=== PATIENT | female | born 1940 | race Caucasian/White ===

== ENCOUNTER 2021-03-19 07:20 | Outpatient (REF) | payer MEDICARE, SELFPAY ==
[2021-03-19 11:24] LABS: Glucose Urine UA NEG (NEG); Leukocyte Esterase Urine 1+ (NEG); Nitrite Urine NEG (NEG); Specific Gravity - Urine 1.025 (1.005-1.025); Urine Blood NEG (NEG); Urine Ketones NEG (NEG); Urine Protein NEG (NEG-TRACE)
[2021-03-19 11:28] LABS: Appearance Urine HAZY; Color Urine YELLOW
[2021-03-19 11:37] LABS: RBC Urine 0 /HPF (0); Squamous Epithelial Cell Urine 1+ /LPF
[2021-03-19 11:39] LABS: Hematocrit 40.6 % (37-47); Hemoglobin 13.6 g/dl (12.0-16.0); Mean Corpuscular HGB Conc 33.5 g/dl (31.0-35.0); Mean Corpuscular Hemoglobin 31.3 pg (27.0-33.0); Mean Corpuscular Volume 93.5 fL (80-98); Mean Platelet Volume 11.7 fL (9.4-12.3); Platelet Count 199 X10*3/uL (160-400); Red Blood Count 4.34 X10*6/uL (4.20-5.50); Red Cell Distribution Width 12.3 % (11.0-16.0)
[2021-03-19 11:48] LABS: Alanine Aminotransferase 9 U/L (0-31); Alkaline Phosphatase 58 U/L (39-117); Anion Gap 11 (12-20); Aspartate Amino Transferase 14 U/L (5-31); Bilirubin Total 0.7 mg/dL (0.0-1.0); Blood Urea Nitrogen 14 mg/dL (9-16); Calcium 9.1 mg/dL (8.4-10.2); Carbon Dioxide 25 mmol/L (22-29); Chloride 109 mmol/L (96-108); Cholesterol 221 mg/dL; Estimated Glomerular Filt Rate > 60; Glucose Fasting 99 mg/dL (60-99); HDL Cholesterol 39 mg/dL; LDL Cholesterol Calculated 154 mg/dl; Potassium 4.1 mmol/L (3.3-5.1); Sodium 141 mmol/L (135-145); Total Protein 7.3 g/dL (6.5-8.0); Triglycerides 140 mg/dL
[2021-03-19 12:10] LABS: TSH reflex Free T4 1.19 uIU/mL (0.32-4.0)
== END 2021-03-19 07:21 | disposition home or self-care (01) ==
LOC: HO.HMGCLDS 07:20
PROVIDERS: PCP Internal Medicine; Visit Provider Internal Medicine
DX: Z00.00 Encounter for general adult medical examination without abnormal findings (principal); E78.5 Hyperlipidemia, unspecified; I10 Essential (primary) hypertension
CPT/HCPCS: 36415; 80053; 80061; 81001; 84443; 85027

== ENCOUNTER 2021-09-09 20:16 | Emergency (ER) | payer MEDICARE, SELFPAY ==
--- NOTE | ~2021-09-09 | CT_ITS ---
EXAMINATION: CT CHEST WITHOUT CONTRAST CLINICAL INFORMATION: Severe dysphagia. Rule out esophageal abnormality COMPARISON: None TECHNIQUE: Multidetector volumetric CT imaging of the chest was done. Axial MIP volume rendering provided. Sagittal and coronal reformatted images were obtained. Mild respiratory motion artifact limits evaluation for small nodules. This CT examination was performed using dose optimization techniques as appropriate, variously including the following: *Automated exposure control *Adjustment of mA and/or kV according to patient size (this includes techniques or standardized protocols for targeted exams where dose is matched to indication/reason for exam; i.e. extremities or head) *Use of iterative reconstruction technique DLP: 221 mGy-cm FINDINGS: LUNGS/PLEURA/AIRWAYS: Mild elevation of the right hemidiaphragm. Mild upper lobe predominant centrilobular and paraseptal emphysema is seen. A few scattered nodules are seen. A international account representative nodule anterolaterally in the right upper lobe measures 0.2 cm (image 78, series 5). Mild linear atelectasis/scarring is seen at the lung bases. There are no pleural effusions. The airways are patent. MEDIASTINUM: The visualized thyroid gland shows a nodule in the left lower pole measuring up to 2.1 cm (image 38, series 6). Mild atherosclerosis is seen in the coronary arteries. No pericardial effusion. Mild atherosclerosis is seen in the thoracic aorta without significant dilatation. No mediastinal or hilar lymphadenopathy. UPPER ABDOMEN: Small hiatal hernia. The remainder of the stomach is unremarkable. A small calcification is seen in the spleen. MUSCULOSKELETAL: Mild thoracic dextro scoliosis is seen with mild to moderate multilevel degenerative changes. No suspicious abnormality. SOFT TISSUES: Unremarkable. CT/CT chest wo con IMPRESSION: 1. Small hiatal hernia without other significant esophageal abnormality. Further evaluation with esophagram is recommended. 2. Mild centrilobular/paraseptal emphysema and chronic changes. A few scattered nodules measuring up to 0.2 cm are nonspecific. Following Fleischner Society guidelines, imaging follow-up is recommended as clinically indicated. 3. Left lower pole thyroid nodule measuring 2.1 cm amenable to further evaluation with dedicated thyroid ultrasound.
[2021-09-09 20:36] VITALS: BP 138/74; PULSE 84; O2SAT 95
[2021-09-09 20:44] VITALS: BP 143/71; PULSE 75; RESP 18; TEMP 36.5; O2SAT 100; BMI 29.8
--- NOTE | 2021-09-09 20:45 | ED_ITS ---
HPI - General Adult General Chief complaint: General Medical Stated complaint: [place] lightheadedness Time Seen by Provider: 09/09/21 20:45 Source: patient Mode of arrival: ambulatory Limitations: no limitations History of Present Illness HPI narrative: Patient history of hypertension hyperlipidemia been having difficulty in swallowing since 08/24 with not feeling good since then whenever she swallows feel that food is staying in the throat area and she has to vomit was at [facility] workup negative no endoscopy or CT scan was done patient states for last 2 weeks she has not eaten any food try to have some pudding and she throws up able to drink liquids Related Data Home Medications Medication Instructions Recorded Confirmed flu vacc 2019-(65yr ml IM 09/25/20 09/07/21 up)-MF59C(PF) 60 mcg(15 mcgx4)/0.5 mL IM syringe cetirizine 10 mg capsule (Zyrtec) 10 mg PO DAILY PRN 04/02/21 09/07/21 Previous Rx's Medication Instructions Recorded metoprolol succinate 50 mg 50 mg PO DAILY #90 tab 02/19/21 tablet,extended release 24 hr indomethacin 75 mg 75 mg PO DAILY #10 cap 09/07/21 capsule,extended release Allergies Allergy/AdvReac Type Severity Reaction Status Date / Time atorvastatin [Lipitor] Allergy Unknown leg cramps Verified 09/07/21 10:23 simvastatin Allergy Unknown leg cramps Verified 09/07/21 10:23 Review of Systems Review of Systems: Yes all other systems are reviewed and are negative PMFSH Past Medical History Medical History Annual physical exam Chronic allergic rhinitis Eczema Gout attack HTN (hypertension) Hyperlipidemia Overweight Surgical History History of partial hysterectomy Family History Family History Father CVD (cardiovascular disease) Myocardial infarction Mother Ovarian cancer Social History Social History Housing: House Alcohol intake: current Alcohol intake frequency: a few times a month Patient Tobacco Use Status: Never used Tobacco e-Cigarette/Vaping Use: Never Used Second Hand Smoke Exposure: No Advance Directives: No Current occupational status: retired Physical Exam Vital Signs: Vital Signs: Last Vital Signs Temp 97.7 F 09/09/21 20:44 Pulse 83 09/10/21 00:38 Resp 18 09/10/21 00:38 BP 149/74 H 09/10/21 00:38 Pulse Ox 94 09/10/21 00:38 BMI result Body Mass Index 29.8 Medical Decision Making MDM Narrative Medical decision making narrative: Patient with stable labs CT scan chest negative for any obstructive finding slight hiatal hernia when patient asked to eat swallow pudding she had a hard time but could ED hole cup when we asked for to drink water patient was able to drink water but complaining of water staying in the throat patient did not throw up in the ER, 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 Will give her Ativan and evaluate again 1:19 patient feeling much better after Ativan able to drink water feeling less dizzy now planning to discharge her home in the morning Lab Data Lab results reviewed: Yes I reviewed the patient's lab results. Result diagrams: 09/09/21 22:00 09/09/21 22:00 Labs: Lab Results 09/09/21 09/09/21 09/09/21 Range/Units 22:00 22:00 22:00 WBC 8.0 (4.8-10.8) X10*3/uL RBC 4.68 (4.20-5.50) X10*6/uL Hgb 14.8 (12.0-16.0) g/dl Hct 42.0 (37.0-47.0) % MCV 89.7 (80.0-98.0) fL MCH 31.6 (27.0-33.0) pg MCHC 35.2 H (31.0-35.0) g/dl RDW 11.9 (11.0-16.0) % Plt Count 218 (160-400) X10*3/uL MPV 11.1 (9.4-12.3) fL Immature Gran % (Auto) 0.2 (0.0-0.4) % Neut % (Auto) 72.6 (45-73) % Lymph % (Auto) 18.5 L (20-40) % [place] % (Auto) 6.8 (2-11) % Eos % (Auto) 1.2 (0-4) % Baso % (Auto) 0.7 (0-2) % Lymph # (Auto) 1.5 (1.2-4.9) X10*3/uL [place] # (Auto) 0.6 (0.1-1.2) X10*3/uL Eos # (Auto) 0.1 (0.0-0.4) X10*3/uL Baso # (Auto) 0.1 (0.0-0.2) X10*3/uL Abs Immat Gran (auto) 0.02 (0.00-0.03) X10*3/uL Absolute Neuts (auto) 5.8 (2.0-8.3) x10*3/uL Absolute Nucleated RBC 0.000 (0.0-0.012) X10*3/uL Nucleated RBC % (auto) 0.0 (0.0-0.2) /100WBC PT 13.9 H (9.9-13.0) SEC INR 1.2 H (0.9-1.1) Sodium 135 (135-145) mmol/L Potassium 3.5 (3.3-5.1) mmol/L Chloride 102 (96-108) mmol/L Carbon Dioxide 24 (22-29) mmol/L Anion Gap 13 (12-20) BUN 8 L (9-16) mg/dL Creatinine 0.67 (0.5-1.4) mg/dL Estim Creat Clear Calc 66.9 Estimated GFR > 60 Random Glucose 113 (60-115) mg/dL Calcium 9.5 (8.4-10.2) mg/dL Magnesium 2.2 (1.6-2.6) mg/dL Total Bilirubin 1.2 H (0.0-1.0) mg/dL AST 19 (5-31) U/L ALT 16 (0-31) U/L Alkaline Phosphatase 46 D (39-117) U/L Total Protein 7.7 (6.5-8.0) g/dL Albumin 4.1 (3.5-5.0) g/dL COVID-19 ([facility]) (Negative) COVID-19 Clin Com 09/09/21 Range/Units 22:00 WBC (4.8-10.8) X10*3/uL RBC (4.20-5.50) X10*6/uL Hgb (12.0-16.0) g/dl Hct (37.0-47.0) % MCV (80.0-98.0) fL MCH (27.0-33.0) pg MCHC (31.0-35.0) g/dl RDW (11.0-16.0) % Plt Count (160-400) X10*3/uL MPV (9.4-12.3) fL Immature Gran % (Auto) (0.0-0.4) % Neut % (Auto) (45-73) % Lymph % (Auto) (20-40) % [place] % (Auto) (2-11) % Eos % (Auto) (0-4) % Baso % (Auto) (0-2) % Lymph # (Auto) (1.2-4.9) X10*3/uL [place] # (Auto) (0.1-1.2) X10*3/uL Eos # (Auto) (0.0-0.4) X10*3/uL Baso # (Auto) (0.0-0.2) X10*3/uL Abs Immat Gran (auto) (0.00-0.03) X10*3/uL Absolute Neuts (auto) (2.0-8.3) x10*3/uL Absolute Nucleated RBC (0.0-0.012) X10*3/uL Nucleated RBC % (auto) (0.0-0.2) /100WBC PT (9.9-13.0) SEC INR (0.9-1.1) Sodium (135-145) mmol/L Potassium (3.3-5.1) mmol/L Chloride (96-108) mmol/L Carbon Dioxide (22-29) mmol/L Anion Gap (12-20) BUN (9-16) mg/dL Creatinine (0.5-1.4) mg/dL Estim Creat Clear Calc Estimated GFR Random Glucose (60-115) mg/dL Calcium (8.4-10.2) mg/dL Magnesium (1.6-2.6) mg/dL Total Bilirubin (0.0-1.0) mg/dL AST (5-31) U/L ALT (0-31) U/L Alkaline Phosphatase (39-117) U/L Total Protein (6.5-8.0) g/dL Albumin (3.5-5.0) g/dL COVID-19 ([facility]) Negative (Negative) COVID-19 Clin Com See Note Discharge Plan Discharge Clinical Impression: Globus hystericus Patient Disposition: Home, Self-Care Instructions: Dysphagia (ED) Additional Instructions: your dysphagia workup is negative for any obstruction clinically patient has psychogenic dysphagia/globus hystericus patient . follow up with car inspector Prescriptions: No Action metoprolol succinate 50 mg tablet extended release 24 hr 50 mg PO DAILY Qty: 90 RF: 3 Fluad Quad 2020-21(65y up)(PF) 60 mcg (15 mcg x 4)/0.5 mL syringe IM RF: 0 Zyrtec 10 mg capsule 10 mg PO DAILY PRNRF: 0 indomethacin 75 mg capsule, extended release 75 mg PO DAILY Qty: 10 RF: 0 Referrals: Mati Head MD [Physician] - 1 week
[2021-09-09] MEDS: Famotidine/PF 20 MG/2 ML VIAL IVPUSH (21:41)
[2021-09-09] MEDS: 0.9 % Sodium Chloride 1,000 ML 999 ML IV (21:41)
[2021-09-09] MEDS: ondansetron HCL 4 MG/2 ML VIAL IVPUSH (21:41)
[2021-09-09 22:00] VITALS: BP 159/86; PULSE 84; RESP 18; O2SAT 96
[2021-09-09 22:05] LABS: MANUAL DIFF FLAG NO
[2021-09-09 22:08] LABS: Basophils Absolute Auto 0.1 X10*3/uL (0.0-0.2); Basophils Percent Auto 0.7 % (0-2); Eosinophils Absolute Auto 0.1 X10*3/uL (0.0-0.4); Eosinophils Percent Auto 1.2 % (0-4); Hemoglobin 14.8 g/dl (12.0-16.0); Imm Gran Abs Auto 0.02 X10*3/uL (0.00-0.03); Imm Gran Pct Auto 0.2 % (0.0-0.4); Lymphocytes Absolute Auto 1.5 X10*3/uL (1.2-4.9); Lymphocytes Percent Auto 18.5 % (20-40); Mean Corpuscular HGB Conc 35.2 g/dl (31.0-35.0); Mean Corpuscular Hemoglobin 31.6 pg (27.0-33.0); Mean Corpuscular Volume 89.7 fL (80.0-98.0); Mean Platelet Volume 11.1 fL (9.4-12.3); Monocytes Absolute Auto 0.6 X10*3/uL (0.1-1.2); Monocytes Percent Auto 6.8 % (2-11); Neutrophils Absolute Auto 5.8 x10*3/uL (2.0-8.3); Neutrophils Percent Auto 72.6 % (45-73); Platelet Count 218 X10*3/uL (160-400); Red Blood Count 4.68 X10*6/uL (4.20-5.50); Red Cell Distribution Width 11.9 % (11.0-16.0)
[2021-09-09 22:16] LABS: INTERNATIONAL NORM RATIO 1.2 (0.9-1.1); Prothrombin Time 13.9 SEC (9.9-13.0)
[2021-09-09 22:26] LABS: Alanine Aminotransferase 16 U/L (0-31); Albumin Level 4.1 g/dL (3.5-5.0); Alkaline Phosphatase 46 U/L (39-117); Anion Gap 13 (12-20); Aspartate Amino Transferase 19 U/L (5-31); Bilirubin Total 1.2 mg/dL (0.0-1.0); Blood Urea Nitrogen 8 mg/dL (9-16); COVID-19 Test Negative (Negative); Calcium 9.5 mg/dL (8.4-10.2); Carbon Dioxide 24 mmol/L (22-29); Chloride 102 mmol/L (96-108); Creatinine Clr Calc Pharmacy 66.9; Estimated Glomerular Filt Rate > 60; Glucose Random 113 mg/dL (60-115); Magnesium 2.2 mg/dL (1.6-2.6); Potassium 3.5 mmol/L (3.3-5.1); Sodium 135 mmol/L (135-145); Total Protein 7.7 g/dL (6.5-8.0)
--- NOTE | 2021-09-09 22:50 | MHC.CM.ED ---
CM met with patient at request of Marcie COE over concerns about HCP. Pt would like to change her HCP because her son is a community health coordinator in [place] and cannot fufill her needs at this time. New HCP completed and signed per protocol Copies given and uploaded into [employer] and [facility] [employer]. HCP #1/grandson Giovanny Nolascoderick ([phone]) and #2 Guillermina Leonмарина (daughter in law) ([phone]). Medical work up continues.
--- NOTE | 2021-09-09 23:09 | PC.NURSE ---
pt has a red beefy raw rash with marcum discharge. foul smelling,
[2021-09-09 23:27] VITALS: BP 159/86; PULSE 85; RESP 20; O2SAT 97
--- NOTE | 2021-09-09 23:28 | PC.NURSE ---
pt was given a po challenger and a swallow eval was done before the challenge. pt was able to swallow the water with no difficulty but then stated the water felt stuck in her throat. dr lam made aware of this and pudding was tried with no difficutly. pt has difficutly with water but not the pudding. pt hob elevated and small bits of the pudding are being taken with rn at bedside.
[2021-09-10 00:38] VITALS: BP 149/74; PULSE 83; RESP 18; O2SAT 94
[2021-09-10] MEDS: LORazepam 2 MG/ML VIAL 0.5 MG IVPUSH (00:45)
--- NOTE | 2021-09-10 02:27 | PC.NURSE ---
pt very sleepy, unable to stay awake to give discharge instructions.
[2021-09-10 03:46] VITALS: BP 133/58; PULSE 75; RESP 16; O2SAT 96
[2021-09-10 04:49] VITALS: BP 149/52; PULSE 81; RESP 16; O2SAT 96
== END 2021-09-10 04:44 | disposition home or self-care (01) ==
PROVIDERS: Emergency Provider Internal Medicine; PCP Internal Medicine
DX: F45.8 Other somatoform disorders (principal); Z20.822 Contact with and (suspected) exposure to COVID-19; R11.2 Nausea with vomiting, unspecified; K44.9 Diaphragmatic hernia without obstruction or gangrene; I10 Essential (primary) hypertension; E78.5 Hyperlipidemia, unspecified
CPT/HCPCS: 36415; 71250; 80053; 83735; 85025; 85610; 87635; 96361; 96374; 96375; 99284; J2060; J2405

== ENCOUNTER 2021-09-11 10:19 | Inpatient (IN) | payer MEDICARE, SELFPAY ==
--- NOTE | ~2021-09-11 | CT_ITS ---
EXAMINATION: CT ABDOMEN AND PELVIS WITH CONTRAST CLINICAL INFORMATION: Lower abdominal pain. Vomiting. COMPARISON: None TECHNIQUE: Multidetector volumetric images were obtained from the superior aspect of the liver through the pubic symphysis following administration 85 mL of Omnipaque 350 intravenous contrast. Sagittal and coronal reformatted images were obtained on the technologist's workstation. Oral contrast: No This CT examination was performed using dose optimization techniques as appropriate, variously including the following: *Automated exposure control *Adjustment of mA and/or kV according to patient size (this includes techniques or standardized protocols for targeted exams where dose is matched to indication/reason for exam; i.e. extremities or head) *Use of iterative reconstruction technique DLP: 713 mGy-cm FINDINGS: LUNG BASES: The visualized lung bases are unremarkable. LIVER, GALLBLADDER, AND BILIARY TREE: The liver is normal in size, shape, and attenuation. No focal hepatic lesion or biliary ductal dilatation is present. The gallbladder is unremarkable with no evidence of radiopaque gallstones, gallbladder wall thickening, or obvious pericholecystic inflammatory changes. PANCREAS: Unremarkable. SPLEEN: Small calcified granuloma in the spleen. ADRENAL GLANDS: Unremarkable. KIDNEYS AND URETERS: There are bilateral parapelvic cysts. No follow-up imaging is recommended for simple renal cyst. No renal or ureteral calculus. No hydronephrosis. Normal enhancement of the cortex of both kidneys. BLADDER: Unremarkable. GASTROINTESTINAL TRACT: The small and large bowel are unremarkable. The appendix is nonvisualized.. ABDOMINAL WALL: No significant hernia is appreciated. LYMPH NODES: Normal. VASCULAR: Vascular calcifications throughout the abdomen and pelvis. There is no aneurysm. PELVIC VISCERA: Uterus is absent. No pelvic mass. OSSEOUS STRUCTURES: Multilevel degenerative spondylosis spine. S-shaped scoliosis of spine. CT/CT abdomen pelvis w con IMPRESSION: No acute abnormality CT scan abdomen pelvis. Fleischner guidelines were followed.
[2021-09-11 10:24] VITALS: BP 196/86; PULSE 72; O2SAT 97
[2021-09-11 10:26] VITALS: BP 167/62; PULSE 74; RESP 16; TEMP 36.8; O2SAT 95; BMI 29.8
--- NOTE | 2021-09-11 11:00 | ED_ITS ---
HPI - General Adult General Chief complaint: Nausea/Vomiting/Diarrhea Stated complaint: nausea/vomiting Time Seen by Provider: 09/11/21 10:32 Source: patient Mode of arrival: EMS Limitations: no limitations History of Present Illness HPI narrative: 81-year-old female presents for 2 weeks of vomiting. Patient was seen here in the emergency room yesterday, diagnosed with globus hystericus. Patient tells me she had a virus August 24, 2021, she had body aches, and could not eat food due to her illness. She states that the next week she started with periods of vomiting. She has been dizzy, weak, tired from vo miting. She has not been able to keep food down for the last several weeks. She states that she feels she has heartburn now. States that yesterday when she came to the emergency room it felt like after she swallowed food the food felt stuck. She had the same feeling earlier today. In the emergency room yesterday she was able to eat pudding and swallow without vomiting. Today however she had only 2 tsp of cream of wheat, and vomited afterwards. She has been nauseous. H Per ED note yesterday, and per patient's report, she has not had any recent endoscope. No fevers, no diarrhea, no abdominal pain, no shortness of breath. Patient is vaccinated and boosted for COVID. Patient lives alone. Past medical history significant only for hyperlipidemia hypertension and obesity. Related Data Previous Rx's Medication Instructions Recorded metoprolol succinate 50 mg 50 mg PO DAILY #90 tab 02/19/21 tablet,extended release 24 hr lorazepam 0.5 mg tablet (Ativan) 0.5 mg PO BID PRN #14 tab 09/10/21 naproxen 500 mg tablet 500 mg PO BID PRN #20 tab 09/10/21 Allergies Allergy/AdvReac Type Severity Reaction Status Date / Time atorvastatin [Lipitor] Allergy Unknown leg cramps Verified 09/07/21 10:23 simvastatin Allergy Unknown leg cramps Verified 09/07/21 10:23 Review of Systems Constitutional: Constitutional: Reports anorexia, Reports chills, Reports fatigue, Denies fever(s), Denies headache(s) and Reports lethargy Eyes: Eyes: Denies blurry vision, Denies diplopia and Denies loss of vision ENT: Reports dizziness, Denies otalgia, Denies headache(s), Denies mouth pain, Denies nasal discharge, Denies sore throat and Denies throat swelling Cardiovascular: Cardiovascular: Denies chest pain, Denies chest pain at rest, Reports Epigastric Pain, Denies syncope, Denies pedal edema, Denies edema, Denies lightheadedness and Denies dyspnea Respiratory: Respiratory: Denies chest congestion, Denies cough and Denies dyspnea Gastrointestinal: Gastrointestinal: Denies melena, Denies hematochezia, Denies coffee ground emesis, Reports heartburn, Denies diarrhea, Reports nausea, Reports vomiting and Denies hematemesis Genitourinary: Genitourinary: Reports no additional female genitourinary complaints, Denies dysuria, Denies pelvic pain, Denies urinary hesitancy, Denies urinary urgency, Denies vaginal discharge and Denies vaginal odor Musculoskeletal: Musculoskeletal: Reports no additional musculoskeletal complaints, Denies numbness and Denies tingling Integumentary/Breasts: Skin/Breast: Reports rash (under pannus) Neurologic: Reports dizziness, Denies syncope, Denies headache(s), Denies focal weakness, Denies loss of vision, Denies numbness, Denies seizure-like activity, Denies Sensory deficit (Neuro) and Denies tingling Endocrine: Endocrine: Reports fatigue Allergic/Immunologic: Allergic/Immunologic: Denies throat swelling PMFSH Past Medical History Medical History Annual physical exam Chronic allergic rhinitis Eczema Gout attack HTN (hypertension) Hyperlipidemia Overweight Surgical History History of partial hysterectomy Family History Family History Father CVD (cardiovascular disease) Myocardial infarction Mother Ovarian cancer Social History Social History Housing: House Alcohol intake: current Alcohol intake frequency: a few times a month Patient Tobacco Use Status: Never used Tobacco e-Cigarette/Vaping Use: Never Used Second Hand Smoke Exposure: No Advance Directives: Yes Advance Directives on File: Yes Advance Directives Date on File: 09/10/21 Current occupational status: retired Physical Exam Vital Signs: Vital Signs: Last Vital Signs Temp 98.9 F 09/11/21 15:57 Pulse 74 09/11/21 15:57 Resp 15 09/11/21 15:57 BP 167/63 H 09/11/21 15:57 Pulse Ox 96 09/11/21 15:57 BMI result Body Mass Index 29.8 Const: General: cooperative, no acute distress, alert, awake and tired appearing Nutritional Appearance: obese morbidly obese Orientation/consciousness: patient oriented x3 Limitations: no limitations HENMT: Head: Yes normal to inspection, Yes normocephalic and Yes atraumatic Ears: hearing grossly normal bilaterally, external ears normal, TM's normal bilaterally and EAC's normal General nose exam: Normal external nose present Face and sinus: Yes normal facial exam and Yes sinuses nontender Mouth: mucous membranes dry Throat: Yes posterior oropharynx normal Eyes: Conjunctivae: conjunctivae normal Pupils: Equal, round and reactive pupils present EOM: EOMs intact bilaterally Neck: Neck: Yes full ROM, Yes no lymphadenopathy and Yes supple Resp: Effort & Inspection: normal respiratory effort and able to speak in complete sentences Auscultation: clear to auscultation bilaterally, no crackles, no rales, no rhonchi and no wheezes Cardio: Rate: regular rate Rhythm: regular rhythm Heart sounds: S1 normal heart sound present and S2 normal heart sound present GI: Inspection: Yes normal to inspection and Yes Abdominal panniculus present Palpation (GI): Soft to palpation, Tenderness to palpation present (GI) in the LLQ and in the RLQ, Guarding due to palpation present (GI) in the LLQ and in the RLQ and not rigid Percussion: Yes normal to percussion Auscultation: normal bowel sounds Skin: Other: Fungal rash under pannus of abdomen Neuro: General: patient oriented x3, tone normal and moves all extremities Cranial nerves: Yes Equal, round and reactive pupils present Sensory Exam: No Sensory deficit (Neuro) Extrem: General: Yes normal to inspection and Yes full ROM Psych: Appearance: grossly normal Affect: normal affect Attitude: coop erative Thought process: Normal thought process present Course Course Course Narrative: 81-year-old female presents for nausea and vomiting for last 2 weeks. Patient was seen here in the emergency room yesterday for a ?lump in my throat?. Patient has not been able to eat solid foods, she vomits them. She is able to drink fluids. A On exam, elderly tired appearing patient with dry mucous membranes Vitals are stable. Patient is tender and guarding in her left and right lower quadrants. Will give fluids, Zofran, get EKG, troponin, urine, labs, magnesium.. Will CT abdomen. Anticipate admission and further GI workup Reevaluation(s) Reevaluation #1: And patient's chemistry was hemolyzed and was recollect, awaiting those labs Reevaluation #2: Labs are remarkable for troponin of 9.6, will repeat 3 hour troponin. Awaiting urine, abdominal CT read, and repeat troponin. Once these return, will admit for vomiting and inability to keep food down CT is normal. Silva Gillette will evaluate pt. Medical Decision Making Lab Data Result diagrams: 09/11/21 12:00 09/11/21 14:44 Labs: Lab Results 09/11/21 09/11/21 09/11/21 Range/Units 12:00 12:00 12:26 WBC 7.9 (4.8-10.8) X10*3/uL RBC 4.58 (4.20-5.50) X10*6/uL Hgb 14.6 (12.0-16.0) g/dl Hct 41.2 (37.0-47.0) % MCV 90.0 (80.0-98.0) fL MCH 31.9 (27.0-33.0) pg MCHC 35.4 H (31.0-35.0) g/dl RDW 12.1 (11.0-16.0) % Plt Count 225 (160-400) X10*3/uL MPV 11.0 (9.4-12.3) fL Immature Gran % (Auto) 0.3 (0.0-0.4) % Neut % (Auto) 64.5 (45-73) % Lymph % (Auto) 23.9 (20-40) % [place] % (Auto) 8.6 (2-11) % Eos % (Auto) 1.9 (0-4) % Baso % (Auto) 0.8 (0-2) % Lymph # (Auto) 1.9 (1.2-4.9) X10*3/uL [place] # (Auto) 0.7 (0.1-1.2) X10*3/uL Eos # (Auto) 0.2 (0.0-0.4) X10*3/uL Baso # (Auto) 0.1 (0.0-0.2) X10*3/uL Abs Immat Gran (auto) 0.02 (0.00-0.03) X10*3/uL Absolute Neuts (auto) 5.1 (2.0-8.3) x10*3/uL Absolute Nucleated RBC 0.000 (0.0-0.012) X10*3/uL Nucleated RBC % (auto) 0.0 (0.0-0.2) /100WBC Sodium (135-145) mmol/L Potassium (3.3-5.1) mmol/L Chloride (96-108) mmol/L Carbon Dioxide (22-29) mmol/L Anion Gap (12-20) BUN (9-16) mg/dL Creatinine (0.5-1.4) mg/dL Estim Creat Clear Calc Estimated GFR Random Glucose (60-115) mg/dL Calcium (8.4-10.2) mg/dL Phosphorus (2.7-4.5) mg/dL Magnesium (1.6-2.6) mg/dL Total Bilirubin (0.0-1.0) mg/dL Direct Bilirubin (0.0-0.5) mg/dL AST (5-31) U/L ALT (0-31) U/L Alkaline Phosphatase (39-117) U/L Troponin I High Sens 9.6 (<3.5-17.0) ng/L Total Protein (6.5-8.0) g/dL Albumin (3.5-5.0) g/dL Lipase (8-78) U/L COVID-19 ([facility]) Negative (Negative) COVID-19 Clin Com See Note 09/11/21 Range/Units 14:44 WBC (4.8-10.8) X10*3/uL RBC (4.20-5.50) X10*6/uL Hgb (12.0-16.0) g/dl Hct (37.0-47.0) % MCV (80.0-98.0) fL MCH (27.0-33.0) pg MCHC (31.0-35.0) g/dl RDW (11.0-16.0) % Plt Count (160-400) X10*3/uL MPV (9.4-12.3) fL Immature Gran % (Auto) (0.0-0.4) % Neut % (Auto) (45-73) % Lymph % (Auto) (20-40) % [place] % (Auto) (2-11) % Eos % (Auto) (0-4) % Baso % (Auto) (0-2) % Lymph # (Auto) (1.2-4.9) X10*3/uL [place] # (Auto) (0.1-1.2) X10*3/uL Eos # (Auto) (0.0-0.4) X10*3/uL Baso # (Auto) (0.0-0.2) X10*3/uL Abs Immat Gran (auto) (0.00-0.03) X10*3/uL Absolute Neuts (auto) (2.0-8.3) x10*3/uL Absolute Nucleated RBC (0.0-0.012) X10*3/uL Nucleated RBC % (auto) (0.0-0.2) /100WBC Sodium 138 (135-145) mmol/L Potassium 3.4 (3.3-5.1) mmol/L Chloride 106 (96-108) mmol/L Carbon Dioxide 22 (22-29) mmol/L Anion Gap 13 (12-20) BUN 7 L (9-16) mg/dL Creatinine 0.64 (0.5-1.4) mg/dL Estim Creat Clear Calc 70.0 Estimated GFR > 60 Random Glucose 109 (60-115) mg/dL Calcium 9.3 (8.4-10.2) mg/dL Phosphorus 2.1 L (2.7-4.5) mg/dL Magnesium 2.1 (1.6-2.6) mg/dL Total Bilirubin 1.0 (0.0-1.0) mg/dL Direct Bilirubin 0.4 (0.0-0.5) mg/dL AST 20 (5-31) U/L ALT 16 (0-31) U/L Alkaline Phosphatase 49 (39-117) U/L Troponin I High Sens (<3.5-17.0) ng/L Total Protein 8.1 H (6.5-8.0) g/dL Albumin 4.3 (3.5-5.0) g/dL Lipase 47 (8-78) U/L COVID-19 ([facility]) (Negative) COVID-19 Clin Com ECG Data Interpretation: Sinus at a rate of 75. P are 138. QRS 86. QTC 431. Normal axis. Nonspecific ST abnormalities in precordial leads V4, V5, V6. No ST elev ations or depressions. Discharge Plan Discharge Clinical Impression: Nausea & vomiting Qualifiers: Vomiting type: unspecified Qualified Code(s): R11.2 - Nausea with vomiting, unspecified Patient Disposition: Admitted As Inpatient
--- NOTE | 2021-09-11 11:30 | ECG_ITS ---
Test Reason : sick for two weeks Blood Pressure : / mmHG Vent. Rate : 075 BPM Atrial Rate : 075 BPM P-R Int : 138 ms QRS Dur : 086 ms QT Int : 386 ms P-R-T Axes : 044 024 071 degrees QTc Int : 431 ms Normal sinus rhythm Nonspecific ST and T wave abnormality Borderline ECG No previous ECGs available Referred By: Yazmin Ferris Electronically Signed By:CHRISTINA MANLEY
[2021-09-11] MEDS: ondansetron HCL 4 MG/2 ML VIAL IVPUSH ×3 (12:02→22:48)
[2021-09-11] MEDS: 0.9 % Sodium Chloride 1,000 ML 999 ML IV ×2 (12:02→19:17)
[2021-09-11 12:08] LABS: MANUAL DIFF FLAG NO
[2021-09-11 12:10] LABS: Basophils Absolute Auto 0.1 X10*3/uL (0.0-0.2); Basophils Percent Auto 0.8 % (0-2); Eosinophils Absolute Auto 0.2 X10*3/uL (0.0-0.4); Eosinophils Percent Auto 1.9 % (0-4); Hematocrit 41.2 % (37.0-47.0); Hemoglobin 14.6 g/dl (12.0-16.0); Imm Gran Abs Auto 0.02 X10*3/uL (0.00-0.03); Imm Gran Pct Auto 0.3 % (0.0-0.4); Lymphocytes Absolute Auto 1.9 X10*3/uL (1.2-4.9); Lymphocytes Percent Auto 23.9 % (20-40); Mean Corpuscular HGB Conc 35.4 g/dl (31.0-35.0); Mean Corpuscular Hemoglobin 31.9 pg (27.0-33.0); Monocytes Absolute Auto 0.7 X10*3/uL (0.1-1.2); Monocytes Percent Auto 8.6 % (2-11); Neutrophils Absolute Auto 5.1 x10*3/uL (2.0-8.3); Neutrophils Percent Auto 64.5 % (45-73); Platelet Count 225 X10*3/uL (160-400); Red Blood Count 4.58 X10*6/uL (4.20-5.50); Red Cell Distribution Width 12.1 % (11.0-16.0); White Blood Count 7.9 X10*3/uL (4.8-10.8)
[2021-09-11 12:27] LABS: COVID-19 Test Negative (Negative)
[2021-09-11 12:55] LABS: Troponin-I High Sensitivity 9.6 ng/L (<3.5-17.0)
--- NOTE | 2021-09-11 14:25 | PHA.MEDREC ---
Pharmacy Consult ? Medication Reconciliation Pharmacy has completed the medication reconciliation. There are no remarkable issues for provider's attention. Marleny Ann, VasylD
[2021-09-11 15:38] LABS: Alanine Aminotransferase 16 U/L (0-31); Albumin Level 4.3 g/dL (3.5-5.0); Alkaline Phosphatase 49 U/L (39-117); Anion Gap 13 (12-20); Aspartate Amino Transferase 20 U/L (5-31); Bilirubin Direct 0.4 mg/dL (0.0-0.5); Blood Urea Nitrogen 7 mg/dL (9-16); Calcium 9.3 mg/dL (8.4-10.2); Carbon Dioxide 22 mmol/L (22-29); Chloride 106 mmol/L (96-108); Estimated Glomerular Filt Rate > 60; Glucose Random 109 mg/dL (60-115); Lipase 47 U/L (8-78); Magnesium 2.1 mg/dL (1.6-2.6); Phosphorus 2.1 mg/dL (2.7-4.5); Potassium 3.4 mmol/L (3.3-5.1); Sodium 138 mmol/L (135-145); Total Protein 8.1 g/dL (6.5-8.0)
[2021-09-11 15:57] VITALS: BP 167/63; PULSE 74; RESP 15; TEMP 37.2; O2SAT 96
[2021-09-11] MEDS: iohexoL 350 MG/ML 100 ML INFUS..BTL IV (16:54)
[2021-09-11 18:26] LABS: Troponin-I High Sensitivity 15.5 ng/L (<3.5-17.0)
--- NOTE | 2021-09-11 18:34 | P.HPHOSP_ITS ---
History of Present Illness Date of Service: 09/11/21 Chief Complaint: Weakness, decreased oral intake, vomiting An 81 years old lady with PMH of HTN, anxiety who presents to the hospital complaining of worsening weakness, decreased oral intake and recurrent vomiting for the last 2 weeks. Patient reports that 2 weeks ago she caught a virus from the neighborhood that made her body ache all the time and she did not recover from it up to this point as she has no well to eat and feels nauseated it during the day on multiple occasions with vomiting. She is able to keep down some food on occasion when she is not nauseated but overall she is feeling very weak, tired, dizzy upon standing and unsteady on her gait as usually she walks around without using a walker but for the last 3 days she started using it because of the risk of falling. She reports heartburn but no shortness of breath, chest pain, change in bowel habit or urinary symptoms. Blood work, CT scan negative for any acute findings. Will be admitted for further evaluation and treatment. Review of Systems Review of Systems: No fever, chills but reporting generalized weakness and anorexia No chest pain, palpitation No shortness of breath or coughing Heartburn, No abdominal pain, recurrent nausea or vomiting No urinary symptoms No any rash or wounds [facility] Medical History Annual physical exam Chronic allergic rhinitis Eczema Gout attack HTN (hypertension) Hyperlipidemia Overweight Family History Father CVD (cardiovascular disease) Myocardial infarction Mother Ovarian cancer Surgical History History of partial hysterectomy Social History Housing: House Alcohol intake: current Alcohol intake frequency: a few times a month Patient Tobacco Use Status: Never used Tobacco e-Cigarette/Vaping Use: Never Used Second Hand Smoke Exposure: No Advance Directives: Yes Advance Directives on File: Yes Advance Directives Date on File: 09/10/21 Current occupational status: retired Meds Allergies Allergy/AdvReac Type Severity Reaction Status Date / Time atorvastatin [Lipitor] Allergy Unknown leg cramps Verified 09/07/21 10:23 simvastatin Allergy Unknown leg cramps Verified 09/07/21 10:23 Active Medications: Current Medications Acetaminophen (Acetaminophen 325 Mg Tablet) 650 mg PO Q6H [facility] Enoxaparin Sodium (Enoxaparin Sodium 40 Mg/0.4 Ml Syringe) 40 mg SUBCUT Q24H [facility] Sodium Chloride (Ns) 1,000 mls @ 999 mls/hr IV .Q1H1M JAL[facility] Stop: 09/11/21 19:30 Dextrose/Sodium Chloride (D5ns) 1,000 mls @ 75 mls/hr IVCONT .[id number] [facility] Lorazepam (Lorazepam 0.5 Mg Tablet) 0.5 mg PO BID PRN PRN Reason: anxiety Metoclopramide HCl (Metoclopramide Hcl 5 Mg Tablet) 5 mg PO QIDACHS [facility] Metoprolol Succinate (Metoprolol Succinate Er 50 Mg Tab.Er.24h) 50 mg PO DAILY JALIL; Protocol Naproxen (Naproxen 500 Mg Tablet) 500 mg PO BID PRN PRN Reason: Pain, Moderate (Pain Scale 4-6 Ondansetron HCl (Ondansetron Hcl 4 Mg/2 Ml Vial) 4 mg IVPUSH Q8H PRN PRN Reason: Nausea and Vomiting Pharmacy Consult (Consult Rx Perform Med Rec) 1 each MISCELLANE ONCE PRN PRN Reason: Consult order Sodium Chloride (0.9 % Sodium Chloride Flush 3 Ml Syringe) 3 ml IVFLUSH QSHIFT [facility] Physical Exam Vital Signs and Narrative: Vital Signs: Last Vital Signs Temp 98.9 F 09/11/21 15:57 Pulse 74 09/11/21 15:57 Resp 15 09/11/21 15:57 BP 167/63 H 09/11/21 15:57 Pulse Ox 96 09/11/21 15:57 BMI result Body Mass Index 29.8 Const: Other: Constitutional : Alert, oriented, looks weak and tired, not in distress Neck : Normal inspection, Supple Cardiovascular : RRR, S1 S2, no lower extremity edema Respiratory : Good bilateral air entry, no crackles, wheezes or rhonchi Gastrointestinal: soft, lax, Normal bowel sounds, mild epigastric tenderness to palpation Skin : Warm, Dry Neurological : Alert & oriented x3, No focal deficit Results Labs CBC and Chem 7: 09/11/21 12:00 09/11/21 14:44 Labs: Laboratory Results - last 24 hr 09/11/21 09/11/21 09/11/21 12:00 12:00 12:26 MCV 90.0 MCH 31.9 MCHC 35.4 H RDW 12.1 Plt Count 225 MPV 11.0 Immature Gran % (Auto) 0.3 Neut % (Auto) 64.5 Lymph % (Auto) 23.9 [place] % (Auto) 8.6 Eos % (Auto) 1.9 Baso % (Auto) 0.8 Lymph # (Auto) 1.9 [place] # (Auto) 0.7 Eos # (Auto) 0.2 Baso # (Auto) 0.1 Abs Immat Gran (auto) 0.02 Absolute Neuts (auto) 5.1 Absolute Nucleated RBC 0.000 Nucleated RBC % (auto) 0.0 Anion Gap Estim Creat Clear Calc Estimated GFR Random Glucose Calcium Phosphorus Magnesium Total Bilirubin Direct Bilirubin AST ALT Alkaline Phosphatase Troponin I High Sens 9.6 Total Protein Albumin Lipase COVID-19 ([facility]) Negative COVID-19 Clin Com See Note 09/11/21 09/11/21 14:44 17:52 MCV MCH MCHC RDW Plt Count MPV Immature Gran % (Auto) Neut % (Auto) Lymph % (Auto) [place] % (Auto) Eos % (Auto) Baso % (Auto) Lymph # (Auto) [place] # (Auto) Eos # (Auto) Baso # (Auto) Abs Immat Gran (auto) Absolute Neuts (auto) Absolute Nucleated RBC Nucleated RBC % (auto) Anion Gap 13 Estim Creat Clear Calc 70.0 Estimated GFR > 60 Random Glucose 109 Calcium 9.3 Phosphorus 2.1 L Magnesium 2.1 Total Bilirubin 1.0 Direct Bilirubin 0.4 AST 20 ALT 16 Alkaline Phosphatase 49 Troponin I High Sens 15.5 D Total Protein 8.1 H Albumin 4.3 Lipase 47 COVID-19 ([facility]) COVID-19 Clin Com Imaging Radiologist's Impressions: Impressions Abdomen/Pelvis CT 09/11/21 16:53 IMPRESSION: No acute abnormality CT scan abdomen pelvis. Fleischner guidelines were followed. Assessment and Plan (1) Nausea & vomiting: Qualifiers: Vomiting type: unspecified Qualified Code(s): R11.2 - Nausea with vomiting, unspecified Status: Acute (2) Failure to thrive in adult: Status: Acute (3) Epigastric pain: Status: Acute (4) Physical deconditioning: Status: Acute An 81 years old lady with PMH of HTN, anxiety who presents to the hospital complaining of worsening weakness, decreased oral intake and recurrent vomiting for the last 2 weeks. Generalized weakness Failure to thrive in adult Seems to be related to recent viral infection, decreased oral intake, medication side effect Treat possible gastritis with PPI and famotidine Supportive therapy with IV fluid Physical deconditioning Fall risk PT evaluation Nausea and vomiting Could be related to recent viral infection or gastritis from using of naproxen Hold naproxen for now Use Tylenol for pain only Start PPI and famotidine Metoclopramide 5 mg around mealtime Zofran as needed DVT PPX Lovenox Quality Stroke Does the patient have a stroke diagnosis?: No VTE Prior VTE?: No VTE Risk Level:: Medical - moderate - high VTE Device Contraindication: Treatment Not Indicated VTE Drug Contraindication: N/A - Med Ordered
[2021-09-11 18:40] VITALS: BP 154/84; PULSE 86; RESP 32; O2SAT 96
[2021-09-11 18:51] LABS: Appearance Urine CLEAR; Color Urine YELLOW; Glucose Urine UA NEG (NEG); Leukocyte Esterase Urine NEG (NEG); Nitrite Urine NEG (NEG); PH 5.5 (5.0-8.0); UACC Culture Trigger NO; Urine Blood TRACE (NEG); Urine Ketones >=80 MG/DL (NEG); Urine Protein NEG (NEG-TRACE)
[2021-09-11 19:00] LABS: Bacteria Urine TRACE /LPF; RBC Urine 0-2 /HPF (0); Squamous Epithelial Cell Urine TRACE /LPF; WBC Urine 0 /HPF (0-4)
[2021-09-11] MEDS: Acetaminophen 325 MG TABLET 650 MG PO (19:16)
[2021-09-11] MEDS: Omeprazole 20 MG CAPSULE.DR PO (19:16)
[2021-09-11] MEDS: Famotidine/PF 20 MG/2 ML VIAL IVPUSH (19:16)
[2021-09-11] MEDS: Dextrose 5 % and 0.9 % NaCl 1,000 ML 75 ML IVCONT (20:29)
[2021-09-11 21:12] VITALS: BP 182/59; PULSE 81; RESP 20; TEMP 36.4; O2SAT 93
[2021-09-11] MEDS: Metoclopramide HCl 5 MG TABLET PO (21:15)
[2021-09-11] MEDS: Nystatin Powder 15 GM BOTTLE 1 APPL TOPICAL (22:48)
[2021-09-12] VITALS: BP 156/68; PULSE 67; RESP 18; TEMP 36.6; O2SAT 91
[2021-09-12 04:00] VITALS: BP 184/88; PULSE 78; RESP 18; TEMP 36.6; O2SAT 99
[2021-09-12 05:44] LABS: Hematocrit 39.2 % (37.0-47.0); Hemoglobin 13.5 g/dl (12.0-16.0); Mean Corpuscular HGB Conc 34.4 g/dl (31.0-35.0); Mean Corpuscular Volume 90.1 fL (80.0-98.0); Mean Platelet Volume 11.1 fL (9.4-12.3); Platelet Count 195 X10*3/uL (160-400); Red Blood Count 4.35 X10*6/uL (4.20-5.50); White Blood Count 7.7 X10*3/uL (4.8-10.8)
[2021-09-12 05:54] LABS: Anion Gap 13 (12-20); Blood Urea Nitrogen 4 mg/dL (9-16); Carbon Dioxide 21 mmol/L (22-29); Chloride 106 mmol/L (96-108); Creatinine Clr Calc Pharmacy 74.7; Estimated Glomerular Filt Rate > 60; Glucose Random 113 mg/dL (60-115); Potassium 3.4 mmol/L (3.3-5.1); Sodium 137 mmol/L (135-145)
--- NOTE | 2021-09-12 05:59 | PC.NURSE ---
MESSAGE RECEIVED FROM NURSING CONCRETE PRECAST MOULDER THAT THIS PATIENT JUAN JOSE SON ANNA WHO LIVES IN [place] IS LOOKING FOR A PHONE CALL FOR AN UPDATE ON HIS MOM. PATIENT AGREEABLE TO DISCUSS WITH HIM. CALLED BY THIS [employer] ENFORCEMENT OFFICER AT [phone] TO ANNA AND SPOKE WITH HIM ABOUT HER TREATMENT, CONDITION, LABWORK, CT SCAN, MEDICATIONS, DIET, AND OVERALL ASSESSSMENT DONE BY THIS [employer] E[employer] OFFICER AT [employer]., [id number]. ALL QUESTIONS ANSWERED AND SON THANKFUL FOR THE UPDATE. [facility] CONCRETE PRECAST MOULDER MADE AWARE THAT SON WAS CALLED PER HIS WISHES. HE WAS CURRENTLY ON HIS OWN SHIFT, [address] IN [place], AND VERBALIZED THAT HE WOULD CALL BACK AGAIN LATE MORNING. WILL ALERT DAY SHIFT RN IN REPORT.
[2021-09-12] MEDS: Omeprazole 20 MG CAPSULE.DR PO ×2 (06:33→16:07)
[2021-09-12] MEDS: Dextrose 5 % and 0.9 % NaCl 1,000 ML 75 ML IVCONT ×2 (07:25→21:55)
[2021-09-12] MEDS: Metoclopramide HCl 5 MG TABLET PO ×4 (07:25→21:54)
[2021-09-12] MEDS: ondansetron HCL 4 MG/2 ML VIAL IVPUSH ×2 (07:30→16:26)
[2021-09-12 07:34] VITALS: BP 145/99; PULSE 88; RESP 18; TEMP 35.5; O2SAT 96
[2021-09-12] MEDS: Enoxaparin Sodium 40 MG/0.4 ML SYRINGE SUBCUT (10:00)
[2021-09-12] MEDS: Metoprolol Succinate ER 50 MG TAB.ER.24H PO (10:00)
[2021-09-12] MEDS: Nystatin Powder 15 GM BOTTLE 1 APPL TOPICAL ×2 (10:07→21:54)
--- NOTE | 2021-09-12 10:24 | MHC.CM.PN ---
IMM 09/12/21, EMR REVIEWED PT ADMITTED W/FTT, VOMITING WEAKNESS, CM MET W/PT WHOO IS A&OX3, PT REPORTS SHE LIVES AT HOME ALONE, SHE IS INDEPENDENT W/ALL CARE, USES A CANE OCCASIONALLY AND HAS NO HOME SERVICES, PT REPORTS SHE IS WILLING TO ACCEPT [facility] SERVICES HOWEVER REPORTS SHE WOULD DECLINE STR, ANTIC PT MAY NEED PT EVAL, PCP VERIFIED [address] AND HCP ON FILE IN EXPANSE FROM PREVIOUS ADMIT. D/C PLAN: HOME VS HOME W/[facility], FAMILY FOR TRANSPORT.
[2021-09-12] MEDS: Famotidine 20 MG TABLET PO ×2 (11:11→21:54)
[2021-09-12] MEDS: Acetaminophen 325 MG TABLET 650 MG PO (11:38)
--- NOTE | 2021-09-12 11:41 | P.PNIM_ITS ---
Subjective Subjective Date of Service: 09/12/21 Interval History: the patient was seen and evaluated this morning Laying in bed, feels Little better as vomiting decrease Still reporting nausea but able to tolerate some diet Denies any fever, chills or shortness of breath No reported other overnight events. Review of Systems No fever, chills but reporting generalized weakness No chest pain, palpitation No shortness of breath or coughing Heartburn, No abdominal pain, recurrent nausea or vomiting No urinary symptoms No any rash or wounds Physical Exam Vital Signs: Vital Signs: Last Vital Signs Temp 96 F L 09/12/21 07:34 Pulse 88 09/12/21 07:34 Resp 18 09/12/21 07:34 BP 145/99 H 09/12/21 07:34 Pulse Ox 96 09/12/21 07:34 BMI result Body Mass Index 29.8 Const: Other: Constitutional : Alert, oriented, looks weak and tired, not in distress Neck : Normal inspection, Supple Cardiovascular : RRR, S1 S2, no lower extremity edema Respiratory : Good bilateral air entry, no crackles, wheezes or rhonchi Gastrointestinal: soft, lax, Normal bowel sounds, mild epigastric tenderness to palpation Skin : Warm, Dry Neurological : Alert & oriented x3, No focal deficit Objective Data Active Medications Acetaminophen (Acetaminophen 325 Mg Tablet) 650 mg PO Q6H [facility] Last Admin: 09/12/21 06:33 Dose: Not Given Documented by: DALILA Non-Admin Reason: Patient Refused Enoxaparin Sodium (Enoxaparin Sodium 40 Mg/0.4 Ml Syringe) 40 mg SUBCUT Q24H [facility] Last Admin: 09/12/21 10:00 Dose: 40 mg Documented by: REBA Famotidine (Famotidine 20 Mg Tablet) 20 mg PO BID [facility] Last Admin: 09/12/21 11:11 Dose: 20 mg Documented by: REBA Dextrose/Sodium Chloride (D5ns) 1,000 mls @ 75 mls/hr IVCONT .[id number] [facility] Last Admin: 09/12/21 07:25 Dose: 75 mls/hr Documented by: REBA Lorazepam (Lorazepam 0.5 Mg Tablet) 0.5 mg PO BID PRN PRN Reason: anxiety Metoclopramide HCl (Metoclopramide Hcl 5 Mg Tablet) 5 mg PO QIDACHS [facility] Last Admin: 09/12/21 07:25 Dose: 5 mg Documented by: REBA Metoprolol Succinate (Metoprolol Succinate Er 50 Mg Tab.Er.24h) 50 mg PO DAILY [facility]; Protocol Last Admin: 09/12/21 10:00 Dose: 50 mg Documented by: REBA Nystatin (Nystatin Powder 15 Gm Bottle) 1 appl TOPICAL BID [facility]; Protocol Last Admin: 09/12/21 10:07 Dose: 1 appl Documented by: REBA Omeprazole (Omeprazole 20 Mg Capsule.Dr) 20 mg PO BID@0630,1630 [facility] Last Admin: 09/12/21 06:33 Dose: 20 mg Documented by: DALILA Ondansetron HCl (Ondansetron Hcl 4 Mg/2 Ml Vial) 4 mg IVPUSH Q8H PRN PRN Reason: Nausea and Vomiting Last Admin: 09/12/21 07:30 Dose: 4 mg Documented by: REBA Pharmacy Consult (Consult Rx Perform Med Rec) 1 each MISCELLANE ONCE PRN PRN Reason: Consult order Sodium Chloride (0.9 % Sodium Chloride Flush 3 Ml Syringe) 3 ml IVFLUSH QSHIFT [facility] Last Admin: 09/12/21 07:35 Dose: Not Given Documented by: REBA Non-Admin Reason: IV Running Labs CBC & Chem 7: 09/12/21 05:00 09/12/21 05:00 Labs: Laboratory Results - last 24 hr 09/11/21 09/11/21 09/11/21 12:00 12:00 12:26 MCV 90.0 MCH 31.9 MCHC 35.4 H RDW 12.1 Plt Count 225 MPV 11.0 Immature Gran % (Auto) 0.3 Neut % (Auto) 64.5 Lymph % (Auto) 23.9 [place] % (Auto) 8.6 Eos % (Auto) 1.9 Baso % (Auto) 0.8 Lymph # (Auto) 1.9 [place] # (Auto) 0.7 Eos # (Auto) 0.2 Baso # (Auto) 0.1 Abs Immat Gran (auto) 0.02 Absolute Neuts (auto) 5.1 Absolute Nucleated RBC 0.000 Nucleated RBC % (auto) 0.0 Anion Gap Estim Creat Clear Calc Estimated GFR Random Glucose Calcium Phosphorus Magnesium Total Bilirubin Direct Bilirubin AST ALT Alkaline Phosphatase Troponin I High Sens 9.6 Total Protein Albumin Lipase Urine Color Urine Appearance Urine pH Ur Specific [place] Urine Protein Urine Glucose (UA) Urine Ketones Urine Blood Urine Nitrite Ur Leukocyte Esterase Urine RBC Urine WBC Ur Squamous Epith Cells Urine Bacteria COVID-19 ([facility]) Negative COVID-19 Clin Com See Note 09/11/21 09/11/21 09/11/21 14:44 17:52 18:42 MCV MCH MCHC RDW Plt Count MPV Immature Gran % (Auto) Neut % (Auto) Lymph % (Auto) [place] % (Auto) Eos % (Auto) Baso % (Auto) Lymph # (Auto) [place] # (Auto) Eos # (Auto) Baso # (Auto) Abs Immat Gran (auto) Absolute Neuts (auto) Absolute Nucleated RBC Nucleated RBC % (auto) Anion Gap 13 Estim Creat Clear Calc 70.0 Estimated GFR > 60 Random Glucose 109 Calcium 9.3 Phosphorus 2.1 L Magnesium 2.1 Total Bilirubin 1.0 Direct Bilirubin 0.4 AST 20 ALT 16 Alkaline Phosphatase 49 Troponin I High Sens 15.5 D Total Protein 8.1 H Albumin 4.3 Lipase 47 Urine Color YELLOW Urine Appearance CLEAR Urine pH 5.5 Ur Specific [place] 1.010 Urine Protein NEG Urine Glucose (UA) NEG Urine Ketones >=80 Urine Blood TRACE Urine Nitrite NEG Ur Leukocyte Esterase NEG Urine RBC 0-2 Urine WBC 0 Ur Squamous Epith Cells TRACE Urine Bacteria TRACE COVID-19 ([facility]) COVID-19 Clin Com 09/12/21 09/12/21 05:00 05:00 MCV 90.1 MCH 31.0 MCHC 34.4 RDW 12.0 Plt Count 195 MPV 11.1 Immature Gran % (Auto) Neut % (Auto) Lymph % (Auto) [place] % (Auto) Eos % (Auto) Baso % (Auto) Lymph # (Auto) [place] # (Auto) Eos # (Auto) Baso # (Auto) Abs Immat Gran (auto) Absolute Neuts (auto) Absolute Nucleated RBC 0.000 Nucleated RBC % (auto) 0.0 Anion Gap 13 Estim Creat Clear Calc 74.7 Estimated GFR > 60 Random Glucose 113 Calcium 9.0 Phosphorus Magnesium Total Bilirubin Direct Bilirubin AST ALT Alkaline Phosphatase Troponin I High Sens Total Protein Albumin Lipase Urine Color Urine Appearance Urine pH Ur Specific [place] Urine Protein Urine Glucose (UA) Urine Ketones Urine Blood Urine Nitrite Ur Leukocyte Esterase Urine RBC Urine WBC Ur Squamous Epith Cells Urine Bacteria COVID-19 ([facility]) COVID-19 Clin Com Assessment and Plan (1) Physical deconditioning: Status: Acute (2) Epigastric pain: Status: Acute (3) Failure to thrive in adult: Status: Acute (4) Nausea & vomiting: Status: Acute Assessment and Plan: An 81 years old lady with PMH of HTN, anxiety who presents to the hospital complaining of worsening weakness, decreased oral intake and recurrent vomiting for the last 2 weeks. Generalized weakness Failure to thrive in adult Improving Could be related to recent viral infection, decreased oral intake, medication side effect Treat possible gastritis with PPI and famotidine Supportive therapy with IV fluid Physical deconditioning Fall risk PT evaluation Nausea and vomiting Could be related to recent viral infection or gastritis from using of naproxen Hold naproxen for now Use Tylenol for pain only Continue PPI and famotidine Metoclopramide 5 mg around mealtime Zofran as needed DVT PPX Lovenox Quality Stroke Does the patient have a stroke diagnosis?: No VTE Prior VTE?: No VTE Risk Level:: Medical - moderate - high VTE Device Contraindication: Treatment Not Indicated VTE Drug Contraindication: N/A - Med Ordered
[2021-09-12 11:55] VITALS: BP 145/99; PULSE 88; O2SAT 96
[2021-09-12 16:00] VITALS: BP 157/69; PULSE 78; RESP 18; TEMP 37.2; O2SAT 93
[2021-09-12] MEDS: 0.9 % Sodium Chloride Flush 3 ML SYRINGE IVFLUSH (16:07)
[2021-09-12 20:00] VITALS: BP 170/77; PULSE 66; RESP 18; TEMP 36.8; O2SAT 96
[2021-09-13 01:14] VITALS: BP 140/63; PULSE 69; RESP 14; TEMP 36.1; O2SAT 92
[2021-09-13] MEDS: Omeprazole 20 MG CAPSULE.DR PO ×2 (06:10→15:59)
[2021-09-13 06:14] LABS: Hematocrit 38.3 % (37.0-47.0); Hemoglobin 13.3 g/dl (12.0-16.0); Mean Corpuscular HGB Conc 34.7 g/dl (31.0-35.0); Mean Corpuscular Hemoglobin 30.8 pg (27.0-33.0); Mean Corpuscular Volume 88.7 fL (80.0-98.0); Platelet Count 219 X10*3/uL (160-400); Red Blood Count 4.32 X10*6/uL (4.20-5.50); White Blood Count 8.1 X10*3/uL (4.8-10.8)
[2021-09-13 06:33] LABS: Anion Gap 12 (12-20); Blood Urea Nitrogen 5 mg/dL (9-16); Calcium 9.3 mg/dL (8.4-10.2); Carbon Dioxide 21 mmol/L (22-29); Chloride 104 mmol/L (96-108); Creatinine Clr Calc Pharmacy 74.7; Estimated Glomerular Filt Rate > 60; Glucose Random 123 mg/dL (60-115); Potassium 2.8 mmol/L (3.3-5.1); Sodium 134 mmol/L (135-145)
[2021-09-13 07:43] VITALS: BP 149/100; PULSE 72; RESP 18; TEMP 36.6; O2SAT 94
[2021-09-13] MEDS: Famotidine 20 MG TABLET PO ×2 (08:02→22:02)
[2021-09-13] MEDS: Metoprolol Succinate ER 50 MG TAB.ER.24H PO (08:02)
[2021-09-13] MEDS: Metoclopramide HCl 5 MG TABLET PO ×4 (08:03→22:02)
[2021-09-13] MEDS: 0.9 % Sodium Chloride Flush 3 ML SYRINGE IVFLUSH ×3 (08:03→22:28)
[2021-09-13] MEDS: Potassium Chloride/H20 10 MEQ/100 ML PIGGYBACK 100 MEQ IV ×2 (08:13→09:53)
[2021-09-13] MEDS: Enoxaparin Sodium 40 MG/0.4 ML SYRINGE SUBCUT (09:50)
[2021-09-13] MEDS: Nystatin Powder 15 GM BOTTLE 1 APPL TOPICAL ×2 (10:39→22:14)
--- NOTE | 2021-09-13 10:49 | HO.PM.IMPN ---
Subjective Subjective Date of Service: 09/13/21 Interval History: f/u on abdominal discomfort, gastritis, seems better Review of Systems no fever no n/v Physical Exam Vital Signs: Vital Signs: Last Vital Signs Temp 98 F 09/13/21 07:43 Pulse 72 09/13/21 07:43 Resp 18 09/13/21 07:43 BP 149/100 H 09/13/21 07:43 Pulse Ox 94 09/13/21 07:43 BMI result Body Mass Index 29.8 Const: Other: Constitutional : Alert, oriented, looks weak and tired, not in distress Neck : Normal inspection, Supple Cardiovascular : RRR, S1 S2, no lower extremity edema Respiratory : Good bilateral air entry, no crackles, wheezes or rhonchi Gastrointestinal: soft, lax, Normal bowel sounds, mild epigastric tenderness to palpation Skin : Warm, Dry Neurological : Alert & oriented x3, No focal deficit Objective Data Active Medications Acetaminophen (Acetaminophen 325 Mg Tablet) 650 mg PO Q6H [facility] Last Admin: 09/13/21 06:10 Dose: Not Given Documented by: DALILA Non-Admin Reason: Patient Refused Enoxaparin Sodium (Enoxaparin Sodium 40 Mg/0.4 Ml Syringe) 40 mg SUBCUT Q24H [facility] Last Admin: 09/13/21 09:50 Dose: 40 mg Documented by: REBA Famotidine (Famotidine 20 Mg Tablet) 20 mg PO BID [facility] Last Admin: 09/13/21 08:02 Dose: 20 mg Documented by: REBA Potassium Chloride () 10 meq in 100 mls @ 100 mls/hr IV Q1H [facility] Stop: 09/13/21 10:59 Last Admin: 09/13/21 09:53 Dose: 100 mls/hr Documented by: REBA Lorazepam (Lorazepam 0.5 Mg Tablet) 0.5 mg PO BID PRN PRN Reason: anxiety Metoclopramide HCl (Metoclopramide Hcl 5 Mg Tablet) 5 mg PO QIDACHS [facility] Last Admin: 09/13/21 08:03 Dose: 5 mg Documented by: REBA Metoprolol Succinate (Metoprolol Succinate Er 50 Mg Tab.Er.24h) 50 mg PO DAILY [facility]; Protocol Last Admin: 09/13/21 08:02 Dose: 50 mg Documented by: REBA Nystatin (Nystatin Powder 15 Gm Bottle) 1 appl TOPICAL BID [facility]; Protocol Last Admin: 09/13/21 10:39 Dose: 1 appl Documented by: REBA Omeprazole (Omeprazole 20 Mg Capsule.) 20 mg PO BID@0630,1630 [facility] Last Admin: 09/13/21 06:10 Dose: 20 mg Documented by: DALILA Ondansetron HCl (Ondansetron Hcl 4 Mg/2 Ml Vial) 4 mg IVPUSH Q8H PRN PRN Reason: Nausea and Vomiting Last Admin: 09/12/21 16:26 Dose: 4 mg Documented by: REBA Pharmacy Consult (Consult Rx Perform Med Rec) 1 each MISCELLANE ONCE PRN PRN Reason: Consult order Potassium Chloride (Potassium Chloride Er 20 Meq Tab.Er.Prt) 40 meq PO BID [facility] Stop: 09/13/21 21:01 Sodium Chloride (0.9 % Sodium Chloride Flush 3 Ml Syringe) 3 ml IVFLUSH QSHIFT [facility] Last Admin: 09/13/21 08:03 Dose: 3 ml Documented by: REBA Labs CBC & Chem 7: 09/13/21 05:44 09/13/21 05:44 Labs: Laboratory Results - last 24 hr 09/13/21 09/13/21 05:44 05:44 MCV 88.7 MCH 30.8 MCHC 34.7 RDW 12.0 Plt Count 219 MPV 11.0 Absolute Nucleated RBC 0.000 Nucleated RBC % (auto) 0.0 Anion Gap 12 Estim Creat Clear Calc 74.7 Estimated GFR > 60 Random Glucose 123 H Calcium 9.3 Assessment and Plan (1) Physical deconditioning: Status: Acute (2) Epigastric pain: Status: Acute (3) Failure to thrive in adult: Status: Acute (4) Nausea & vomiting: Status: Acute Assessment and Plan: 81 years old lady with PMH of HTN, anxiety who presents to the hospital complaining of worsening weakness, decreased oral intake and recurrent vomiting for the last 2 weeks. Generalized weakness Failure to thrive in adult Improving Could be related to recent viral infection, decreased oral intake, medication side effect Treat possible gastritis with PPI and famotidine Supportive therapy with IV fluid Physical deconditioning Fall risk PT is recommending STR Nausea and vomiting Could be related to recent viral infection or gastritis from using of naproxen Hold naproxen for now Use Tylenol for pain only Continue PPI and famotidine Metoclopramide 5 mg around mealtime Zofran as needed DVT PPX Lovenox Quality Stroke Does the patient have a stroke diagnosis?: No VTE Prior VTE?: No VTE Risk Level:: Medical - moderate - high VTE Device Contraindication: Treatment Not Indicated VTE Drug Contraindication: N/A - Med Ordered
[2021-09-13 10:59] VITALS: BP 153/61; PULSE 68; RESP 18; TEMP 35.5; O2SAT 97
[2021-09-13] MEDS: Potassium Chloride Packet 20 MEQ PACKET 40 MEQ PO ×2 (11:43→22:01)
[2021-09-13 15:06] VITALS: BP 156/75; PULSE 69; RESP 18; TEMP 37.1; O2SAT 95
[2021-09-13 20:25] VITALS: BP 133/99; PULSE 98; RESP 19; TEMP 36.4; O2SAT 94
--- NOTE | 2021-09-13 21:48 | PC.NURSE ---
Patient's daughter, Guillermina Castorena, called for an update. Daughter tells this marine underwriter that she spoke to patient's nurse yesterday 09/12 and asked for a follow up call from patient's doctor today 09/13, however daughter reports she never received a call from a doctor today. Daughter is asking again to have patient's doctor call with patient's plan of care update tomorrow 09/14 to Guillermina Castorena [phone]. This marine underwriter will alert patient's current nurse, Dhaval with this update to pass the message to morning shift RN.
[2021-09-13] MEDS: LORazepam 0.5 MG TABLET PO (22:35)
[2021-09-14] VITALS: BP 150/67; PULSE 68; RESP 18; TEMP 36.4; O2SAT 93
[2021-09-14 02:56] VITALS: BP 141/62; PULSE 79; RESP 18; TEMP 36.6; O2SAT 94
[2021-09-14] MEDS: Omeprazole 20 MG CAPSULE.DR PO (06:39)
[2021-09-14 07:36] VITALS: BP 149/64; PULSE 70; RESP 16; TEMP 36.2; O2SAT 93
[2021-09-14] MEDS: Potassium Chloride Packet 20 MEQ PACKET 40 MEQ PO (07:41)
[2021-09-14] MEDS: Famotidine 20 MG TABLET PO (07:41)
[2021-09-14] MEDS: Metoclopramide HCl 5 MG TABLET PO ×2 (07:41→10:37)
[2021-09-14] MEDS: Metoprolol Succinate ER 50 MG TAB.ER.24H PO (07:41)
[2021-09-14] MEDS: 0.9 % Sodium Chloride Flush 3 ML SYRINGE IVFLUSH (07:45)
[2021-09-14] MEDS: Nystatin Powder 15 GM BOTTLE 1 APPL TOPICAL (07:49)
--- NOTE | 2021-09-14 09:59 | MHC.CM.PN ---
REFERRAL PLACED TO [facility] FOR HOME PHYSICAL THERAPY. PATIENT DENIES ANY SHORT TERM REHAB REFERRALS AND WANTS TO RETURN HOME WITH FAMILY
--- NOTE | 2021-09-14 10:25 | P.DS_ITS ---
DS: Providers Provider Date of Service: 09/14/21 Date of admission: 09/11/21 18:26 Primary care physician: Milly Rider MD DS: Diagnosis Discharge Diagnosis (1) Physical deconditioning: Status: Acute (2) Epigastric pain: Status: Acute (3) Failure to thrive in adult: Status: Acute (4) Nausea & vomiting: Status: Acute DS: Summary Hospital Course Hospital Course: Chief Complaint: Weakness, decreased oral intake, vomiting An 81 years old lady with PMH of HTN, anxiety who presents to the hospital complaining of worsening weakness, decreased oral intake and recurrent vomiting for the last 2 weeks.? Patient reports that 2 weeks ago she caught a virus from the neighborhood that made her body ache all the time and she did not recover from it up to this point as she has no well to eat and feels nauseated it during the day on multiple occasions with vomiting.? She is able to keep down some food on occasion when she is not nauseated but overall she is feeling very weak, tired, dizzy upon standing and unsteady on her gait as usually she walks around without using a walker but for the last 3 days she started using it because of the risk of falling. She reports heartburn but no shortness of breath, chest pain, change in bowel habit or urinary symptoms. Blood work, CT scan negative for any acute findings.? Will be admitted for further evaluation and treatment. Hosptial course: Generalized weakness , Failure to thrive in adult Improving Could be related to recent viral infection, decreased oral intake, medication side effect. Overall improved with conservative management. PT has seen her and recommended short term rehab but she has declined this and will therefore go home with services Nausea and vomiting probably related to recent viral infection or gastritis from using of naproxen. Treated with Reglan, Pepcid, hydration and Zofran. She is feeling better and eating reglar food. No more nausea or vomitting. Time Spent with Patient Time attestation: Total time spent providing and/or coordinating discharge services: Discharge coordination time: Greater than 30 minutes Quality: Stroke Does the patient have a stroke diagnosis?: No Physical Exam Verdana 4l Vital Signs: Verdana 4d Verdana 4d Vital Signs: Verdana 4d Verdana 4Bd Last Vital Signs Verdana 4d Carpet Layer New 4d Carpet Layer New 4d Temp 97.1 F 09/14/21 07:36 Katarina New 4d Pulse 70 09/14/21 07:36 Carpet Layer NewNew 4d Resp 16 09/14/21 07:36 BP 149/64 H 09/14/21 07:36 Pulse Ox 93 09/14/21 07:36 BMI result Body Mass Index 29.8 Const: Other: General: AO X 3, no acute distress Resp: CTA bilateral CVS: S1,S2,RRR GI: +BS, NT, no distention Skin: No rash Neuro: motor grossly intact Psych: appropriate affect Discharge Plan Discharge Anticipated Discharge Date/Time: 09/14/21 10:22 Patient Disposition: Home Health Service Discharge Diagnosis: Gastritis, weakness Referrals: [facility] [Outside] - 1 Week Milly Rider MD [Primary Care Provider] - 1 Week Discharge Medications: Continued metoprolol succinate 50 mg tablet extended release 24 hr 50 mg PO DAILY Qty: 90 RF: 3 lorazepam [Ativan] 0.5 mg tablet 0.5 mg PO BID PRN (Reason: anxiety) Qty: 14 RF: 0 Discontinued naproxen 500 mg tablet 500 mg PO BID PRN (Reason: pain) Qty: 20 RF: 0 Discharge Orders: Discharge Order (Routine); Ordered 09/14/21 Ordered By: Sly Jeffery Diet: advance to usual diet Activity on Discharge: As tolerated Stand Alone Forms: Patient Portal Discharge page Care Plan Goals: Full recovery from acute illness, increased strenght Health Concerns: Weakness, adult failure to thrive Plan of Treatment: Home PT, follow up with your Doctor in a week Assessment: as above
[2021-09-14] MEDS: Enoxaparin Sodium 40 MG/0.4 ML SYRINGE SUBCUT (10:37)
--- NOTE | 2021-09-14 10:52 | P.F2F_ITS ---
Service Date Service Date: 09/14/21 Encounter Date of encounter: 09/14/21 Reasons for Services Signs and symptoms assessed: Weakness Reason for retirement: medication treatment Reason for occupational therapy: home safety and mobility and gait/transfer training Homebound: Leaving the home is medically contraindicated at this time without the asist of a device and/or another person due th the listed conditions above and below. Reason homebound: weakness related to hospital stay Homebound supporting statement: Homebdound due to weakness related to hospitalization and therefore needs the assistance of another person Certification: Based on the above findings, I certify that this patient is confined to the home and needs intermittent retirement care, physical therapy and/or speech therapy, or continues to need occupational therapy. The patient is under my care, and I have initiated the establishment of the plan of care. The patient will be followed by a physician who will periodically review the plan of care.
--- NOTE | 2021-09-14 11:41 | MHC.CM.PN ---
PATIENT IS DISCHARGED HOME WITH [facility]. RN AWARE OF PLAN. IMM 09/12 IN CHART
[2021-09-14 11:43] VITALS: BP 163/70; PULSE 73; RESP 15; TEMP 36.6; O2SAT 96
[2021-09-14 12:00] VITALS: BP 137/70; PULSE 65; RESP 15; TEMP 36.2; O2SAT 94
--- NOTE | 2021-09-14 12:22 | P.F2F_ITS ---
Service Date Service Date: 09/14/21 Encounter Date of encounter: 09/14/21 Reasons for Services Signs and symptoms assessed: Weakness Reason for physical therapy: therapeutic exercises and gait/transfer training Homebound: Leaving the home is medically contraindicated at this time without the asist of a device and/or another person due th the listed conditions above and below. Reason homebound: other Homebound supporting statement: See other document Certification: Based on the above findings, I certify that this patient is confined to the home and needs intermittent long term care, physical therapy and/or speech therapy, or continues to need occupational therapy. The patient is under my care, and I have initiated the establishment of the plan of care. The patient will be followed by a physician who will periodically review the plan of care.
[2021-09-14 13:23] VITALS: BP 137/70; PULSE 65; O2SAT 94
== END 2021-09-14 15:42 | disposition home health service (06) | DRG 392 ==
LOC: HO.ED 18:14 → HO.EDOVER 18:38 → HO.S3 19:47
PROVIDERS: Physician Assistant; Admitting Provider Student in an Organized Health Care Education/Training Program; Emergency Provider Emergency Medicine; PCP Internal Medicine; Visit Provider Internal Medicine
DX: K29.70 Gastritis, unspecified, without bleeding (principal); T39.315A Adverse effect of propionic acid derivatives, initial encounter; Y92.9 Unspecified place or not applicable; R62.7 Adult failure to thrive; I10 Essential (primary) hypertension; A08.4 Viral intestinal infection, unspecified; F41.9 Anxiety disorder, unspecified; Z68.29 Body mass index [BMI] 29.0-29.9, adult; Z20.822 Contact with and (suspected) exposure to COVID-19; Z79.899 Other long term (current) drug therapy
CPT/HCPCS: 36415; 74177; 80048; 80076; 81001; 83690; 83735; 84100; 84484; 85025; 85027; 87635; 93005; 97110; 97162; 99218; 99284; J1650; J2405; Q9967